=== PATIENT | male | born 1945 | race Caucasian/White ===

== ENCOUNTER → 2017-02-08 | Outpatient (CLI) | payer MEDICARE, OTHER | LOC: KOH-I 11:30 | DX: M79.604 Pain in right leg (principal); R10.31 Right lower quadrant pain | CPT/HCPCS: 76881 ==

== ENCOUNTER → 2017-02-16 | Outpatient (CLI) | payer MEDICARE, OTHER | LOC: KOH-I 10:00 | DX: R19.09 Other intra-abdominal and pelvic swelling, mass and lump (principal); N32.9 Bladder disorder, unspecified; N40.0 Benign prostatic hyperplasia without lower urinary tract symptoms; N43.3 Hydrocele, unspecified | CPT/HCPCS: 72193; Q9962 ==